=== PATIENT | female | born 1985 | race Caucasian/White ===

== ENCOUNTER 2017-02-27 18:58 | Emergency (ER) | payer OTHER, MEDICAID ==
[~2017-02-27] VITALS: Ht 172.7 cm; Wt 104.3 kg
[2017-02-27 19:20] VITALS: BP 145/99
--- NOTE | 2017-02-27 20:07 | NUR ---
PT TO OF4.
--- NOTE | 2017-02-27 20:37 | NUR ---
Patient being evaluated by physician at bedside.
[2017-02-27] MEDS ORDERED: predniSONE 20 MG TAB PO ONE (20:50)
[2017-02-27] MEDS ORDERED: ALBUTEROL 0.083% 2.5 MG/3 ML NEBU INH ONE (20:50)
[2017-02-27] MEDS ORDERED: IPRATROPIUM 0.02% 0.5 MG/2.5 ML NEBU INH ONE (20:50)
[2017-02-27 22:05] VITALS: BP 134/78
--- NOTE | 2017-02-27 22:05 | NUR ---
Patient discharged with v/s stable. Written and verbal after care instructions given and explained. Patient alert, oriented and verbalized understanding of instructions. Ambulatory with steady gait. All questions addressed prior to discharge. ID band removed. Patient advised to follow up with PMD. Rx of Phenergan DM, Albuterol inhaler, and Prednisone given. Patient educated on indication of medication including possible reaction and side effects. Opportunity to ask questions provided and answered.
== END 2017-02-27 22:05 | disposition home or self-care (01) ==
LOC: MED 18:58
DX: J20.9 Acute bronchitis, unspecified (principal)
CPT/HCPCS: 71020; 94640; 94760; 99284; J7512; J7613; J7644

== ENCOUNTER 2017-05-06 14:59 | Emergency (ER) | payer OTHER, MEDICAID ==
[~2017-05-06] VITALS: Ht 175.3 cm; Wt 104.4 kg
[2017-05-06 15:25] VITALS: BP 137/77
== END 2017-05-06 17:37 | disposition left against medical advice (07) ==
LOC: MED 14:59
DX: R42 Dizziness and giddiness (principal); Z53.21 Procedure and treatment not carried out due to patient leaving prior to being seen by health care provider
CPT/HCPCS: 81002; 81025

== ENCOUNTER 2018-07-28 10:37 | Emergency (ER) | payer BC, MEDICAID, OTHER ==
[~2018-07-28] VITALS: Ht 172.7 cm; Wt 113.4 kg
[2018-07-28 10:47] VITALS: BP 132/88
--- NOTE | 2018-07-28 10:49 | NUR ---
urine cup handed to pt for sample
--- NOTE | 2018-07-28 10:52 | NUR ---
33/F BIB SELF WITH c/o continuing pelvic pressure X 1 WEEKPT WAS treated for chlamydia pt describes same pelvic discomfort prior to treatment. denies dysuria. denies vag discharge. DENIES N/V/D; SKIN IS PINK/WARM/DRY; AAOX4 WITH EVEN AND STEADY GAIT; LUNGS CLEAR BL. PT DENIES ANY FEVER, CP, SOB, OR COUGH AT THIS TIME; PATIENT STATES PAIN OF 5/10 AT THIS TIME. PATIENT POSITIONED FOR COMFORT; HOB ELEVATED; BEDRAILS UP X2; BED DOWN. ER MD MADE AWARE OF PT STATUS.
[2018-07-28] MEDS ORDERED: IBUPROFEN 800 MG TAB PO ONE (12:10)
--- NOTE | 2018-07-28 12:19 | NUR ---
PATIENT TAKEN TO XRAY VIA WHEELCHAIR AT THIS TIME.
[2018-07-28 12:56] LABS: APPEARANCE,URINE CLEAR (CLEAR); COLOR,URINE YELLOW (YELLOW)
[2018-07-28 12:57] LABS: BILIRUBIN,URINE NEGATIVE (NEGATIVE); BLOOD, URINE NEGATIVE (NEGATIVE); LEUKOCYTE ESTERASE ,URINE NEGATIVE (NEGATIVE); NITRITE, URINE NEGATIVE (NEGATIVE); PH,URINE 7.5 (5.0-9.0); UGLUCOSE NEGATIVE (NEGATIVE)
[2018-07-28 13:08] VITALS: BP 134/83
--- NOTE | 2018-07-28 13:08 | NUR ---
Patient discharged with v/s stable. Written and verbal after care instructions given and explained. Patient alert, oriented and verbalized understanding of instructions. Ambulatory with steady gait. All questions addressed prior to discharge. ID band removed. Patient advised to follow up with PMD. Rx of LACTOLOSE, MINERAL OIL given. Patient educated on indication of medication including possible reaction and side effects. Opportunity to ask questions provided and answered.
== END 2018-07-28 13:08 | disposition home or self-care (01) ==
LOC: MED 10:37
DX: R10.9 Unspecified abdominal pain (principal)
CPT/HCPCS: 74018; 81003; 81025; 99285

== ENCOUNTER 2018-11-21 08:51 | Emergency (ER) | payer BC ==
[~2018-11-21] VITALS: Ht 175.3 cm; Wt 116.3 kg
--- NOTE | 2018-11-21 08:58 | NUR ---
PT AMBULATED TO ER BED 12
[2018-11-21 08:59] VITALS: BP 142/86
--- NOTE | 2018-11-21 09:11 | NUR ---
C/O ANTERIOR CHEST WALL PAIN UPON COUGHING, NASAL /CHEST CONGESTION 1 WK FATIGUE. DENIES N/V/D; SKIN IS PINK/WARM/DRY; PATIENT STATES PAIN OF 4/10, CHEST WALL; VSS; PATIENT POSITIONED FOR COMFORT; HOB ELEVATED; BEDRAILS UP X1; BED DOWN. ER MD MADE AWARE OF PT STATUS.
[2018-11-21 10:34] VITALS: BP 142/86
--- NOTE | 2018-11-21 10:34 | NUR ---
Patient discharged with v/s stable. Written and verbal after care instructions given and explained. Patient alert, oriented and verbalized understanding of instructions. Ambulatory with steady gait. All questions addressed prior to discharge. ID band removed. Patient advised to follow up with PMD. Rx of promethazine with codeine, tessalon perles, albuterol inhaler given. Patient educated on indication of medication including possible reaction and side effects. Opportunity to ask questions provided and answered.
== END 2018-11-21 10:34 | disposition home or self-care (01) ==
LOC: MED 08:51
DX: J06.9 Acute upper respiratory infection, unspecified (principal)
CPT/HCPCS: 71045; 81025; 99283; Q0092

== ENCOUNTER 2018-12-29 09:48 | Emergency (ER) | payer BC ==
[~2018-12-29] VITALS: Ht 172.7 cm; Wt 115.7 kg
[2018-12-29 09:54] VITALS: BP 128/66
--- NOTE | 2018-12-29 10:04 | NUR ---
BIB SON WITH C/O THROAT PAIN X 3 DAYS, -N/V/D, + COUGH, RHINORRHEA, SNEEZING, WHEEZING, PLUGGED EARS.
--- NOTE | 2018-12-29 10:32 | NUR ---
DR SMITH AT BEDSIDE.
[2018-12-29 12:10] VITALS: BP 128/66
--- NOTE | 2018-12-29 12:10 | NUR ---
Patient discharged with v/s stable. Written and verbal after care instructions given and explained. Patient alert, oriented and verbalized understanding of instructions. Ambulatory with steady gait. All questions addressed prior to discharge. ID band removed. Patient advised to follow up with PMD. Rx of CODEINE PHOSPHATE/PROMETHAZINE HYRDOCHLORIDE, and IBUPROFEN given. Patient educated on indication of medication including possible reaction and side effects. Opportunity to ask questions provided and answered.
== END 2018-12-29 12:10 | disposition home or self-care (01) ==
LOC: MED 09:48
DX: J06.9 Acute upper respiratory infection, unspecified (principal)
CPT/HCPCS: 87081; 99283

== ENCOUNTER 2019-04-17 14:34 | Emergency (ER) | payer BC ==
[~2019-04-17] VITALS: Ht 172.7 cm; Wt 118.6 kg
[2019-04-17 14:37] VITALS: BP 161/89
--- NOTE | 2019-04-17 16:48 | NUR ---
PT WAITING IN LOBBY, REPORTS PAIN AT 5/10 AND ONLY HURTS WHEN SHE GETS UP. VSS.
--- NOTE | 2019-04-17 18:01 | NUR ---
PT BIB BY FAMILY MEMBER. C/O PELVIC PAIN/PRESSURE, CURRENTLY RATED AT 4/10. CHARACTERIZES PAIN SHARP AND RADIATES TO THE BACK. PT REPORTS SHE HAS HAD 3 EPISODES OF THE PAIN IN THE PAST MONTHS THAT LAST APPROXIMATELY 1-2 HOURS. PT REPORTS SHE IS UNABLE TO PARTICIPATE IN NORMAL DAILY ACTIVITIES WHEN CRAMPS ARRIVE. PT REPORTS DIARRHEA X 2 DAYS. DENIES N/V, FEVER, VAGINAL BLEEDING, OR UTI SYMPTOMS. BEDRAILS UP X1, BED LOCKED & LOW. ERMD TO SAÚL PATIENT. Addendum: 04/17/19 at 1823 by [email or web address] PT BIB BY FAMILY MEMBER. C/O PELVIC PAIN/PRESSURE, CURRENTLY RATED AT 4/10. CHARACTERIZES PAIN SHARP AND RADIATES TO THE BACK. PT REPORTS SHE HAS HAD 3 EPISODES OF THE PAIN IN THE PAST MONTHS THAT LAST APPROXIMATELY 1-2 HOURS. PT REPORTS SHE IS UNABLE TO PARTICIPATE IN NORMAL DAILY ACTIVITIES WHEN CRAMPS ARRIVE. TENDERNESS OF SUPRAPUBIC REGION TO PALPATION. PT REPORTS DIARRHEA X 2 DAYS. DENIES N/V, FEVER, VAGINAL BLEEDING, OR UTI SYMPTOMS. DENIES CHANGES TO URINE FREQUENCY OR AMOUNT. BEDRAILS UP X1, BED LOCKED & LOW. ERMD TO MONYAL PATIENT.
[2019-04-17] MEDS ORDERED: IBUPROFEN 400 MG TAB PO ONE (19:35)
[2019-04-17 19:44] LABS: APPEARANCE,URINE CLEAR (CLEAR); BILIRUBIN,URINE NEGATIVE (NEGATIVE); COLOR,URINE YELLOW (YELLOW); LEUKOCYTE ESTERASE ,URINE NEGATIVE (NEGATIVE); NITRITE, URINE NEGATIVE (NEGATIVE); PH,URINE 5.5 (5.0-9.0); UGLUCOSE NEGATIVE (NEGATIVE)
[2019-04-17 20:01] LABS: BLOOD, URINE TRACE (NEGATIVE)
[2019-04-17 20:02] LABS: WBC,URINE 0-5 /HPF (0-5)
[2019-04-17 20:13] VITALS: BP 137/90
[2019-04-19 06:27] LABS: CHLAMYDIA TRACHOMATIS AMP DNA Negative (Negative)
== END 2019-04-17 20:13 | disposition home or self-care (01) ==
LOC: MED 14:34
DX: N94.6 Dysmenorrhea, unspecified (principal)
CPT/HCPCS: 36415; 81001; 81003; 81025; 87070; 87086; 87205; 87210; 87491; 99283

== ENCOUNTER 2019-05-14 11:33 | Emergency (ER) | payer BC ==
[~2019-05-14] VITALS: Ht 172.7 cm; Wt 117.7 kg
[2019-05-14 11:38] VITALS: BP 147/93
--- NOTE | 2019-05-14 11:50 | NUR ---
pt amb to restroom with steady gait
--- NOTE | 2019-05-14 11:54 | NUR ---
34 Y FEMALE BIB SELF C/O DIZZINESS X 3 DAYS AND PERSISENT COUGH X 1 MONTH. LUNGS CLEAR BILATERALLY. INTERMITTENT COUGH DESCRIBED DRY. DENIES PAIN, SOB, CP, OR BLURRY VISION. NEURO INTACT. EQUAL ARM AT RISK PARAPROFESSIONAL. FACIAL SYMMETRY. GCS 15. AA0X4. PUPILS CARLOS. BED IS DOWN, LOCKED, BED RAIL X 1, ERMD TO SEE PT. NO MED HX
--- NOTE | 2019-05-14 11:56 | NUR ---
DR EDOUARD AT BEDSIDE
[2019-05-14 12:22] LABS: APPEARANCE,URINE CLEAR (CLEAR); BILIRUBIN,URINE NEGATIVE (NEGATIVE); BLOOD, URINE NEGATIVE (NEGATIVE); COLOR,URINE YELLOW (YELLOW); LEUKOCYTE ESTERASE ,URINE NEGATIVE (NEGATIVE); NITRITE, URINE NEGATIVE (NEGATIVE); PH,URINE 5.5 (5.0-9.0); UGLUCOSE NEGATIVE (NEGATIVE)
[2019-05-14 12:27] LABS: BARBITURATE, URINE NEG. ng/ml (NEG <=200); BENZODIAZEPINE, URINE NEG. ng/mL (NEG <=200); CANNABINOID, URINE NEG. ng/mL (NEG <=50); COCAINE, URINE NEG. ng/mL (NEG <=300); OPIATE, URINE NEG. ng/mL (NEG <=2000); PHENCYCLIDINE SCREEN,URINE NEG. ng/mL (NEG <=25)
[2019-05-14] MEDS ORDERED: CLINDAMYCIN 150 MG CAP PO ONE (12:30)
[2019-05-14] MEDS ORDERED: MECLIZINE 25 MG TAB PO ONE (12:30)
[2019-05-14] MEDS ORDERED: FAMOTIDINE 20 MG TAB PO ONE (12:30)
[2019-05-14] MEDS ORDERED: hydrOXYzine HCL 25 MG TAB PO ONE (12:30)
--- NOTE | 2019-05-14 12:33 | NUR ---
LAB AT BEDSIDE
[2019-05-14 12:58] LABS: BASOPHILS % (AUTO) 0.3 % (0.0-2.0); EOSINOPHILS # (AUTO) 0.1 K/uL (0-0.4); EOSINOPHILS % (AUTO) 1.1 % (0.0-4.0); HEMATOCRIT 36.7 % (36-48); HEMOGLOBIN 12.2 g/dL (12.0-16.0); LYMPHOCYTES # (AUTO) 1.8 K/uL (2.5-16.5); LYMPHOCYTES % (AUTO) 23.4 % (20.5-51.1); MEAN CORPUSCULAR HEMOGLOBIN 29 pg (27-31); MEAN CORPUSCULAR HGB CONC 33 g/dL (33-37); MEAN CORPUSCULAR VOLUME 87.6 fL (80-94); MONOCYTES # (AUTO) 0.5 K/uL (0.8-1.0); NEUTROPHILS # (AUTO) 5.3 K/uL (1.8-7.7); NEUTROPHILS % (AUTO) 69.2 % (42.2-75.2); PLATELET COUNT (AUTO) 205 K/uL (140-450); RED BLOOD CELL COUNT(AUTO) 4.19 MIL/uL (4.20-5.40); RED CELL DISTRIBUTION WIDTH 13.7 % (11.6-13.7); WHITE BLOOD COUNT (AUTO) 7.6 K/uL (4.8-10.8)
[2019-05-14 14:28] VITALS: BP 142/87
--- NOTE | 2019-05-14 14:28 | NUR ---
Patient discharged with v/s stable. Written and verbal after care instructions given and explained. Patient alert, oriented and verbalized understanding of instructions. Ambulatory with steady gait. All questions addressed prior to discharge. ID band removed. Patient advised to follow up with PMD. Rx of ANTIVERT given. Patient educated on indication of medication including possible reaction and side effects. Opportunity to ask questions provided and answered. PT INSTRUCTED TO FOLLOW UP WITH DR HOWE FOR [employer] SINCE PT IS ATTEMPTING TO GET PREGNENT AT THIS TIME.
== END 2019-05-14 14:28 | disposition home or self-care (01) ==
LOC: MED 11:33
DX: R42 Dizziness and giddiness (principal); R09.82 Postnasal drip; F41.9 Anxiety disorder, unspecified
CPT/HCPCS: 36415; 80305; 81003; 81025; 84703; 85025; 99283; J8597; 99284

== ENCOUNTER 2019-11-23 08:32 | Emergency (ER) | payer BC ==
[~2019-11-23] VITALS: Ht 172.7 cm; Wt 115.3 kg
[2019-11-23 08:38] VITALS: BP 152/85
--- NOTE | 2019-11-23 08:43 | NUR ---
Patient ambulated to bed 5. RN evaluating patient at bedside.
--- NOTE | 2019-11-23 08:48 | NUR ---
Dr. Garcia is evaluating the patient at bedside.
--- NOTE | 2019-11-23 09:01 | NUR ---
Ultrasound at bedside.
--- NOTE | 2019-11-23 09:04 | NUR ---
PT C/O DARK RED VAGINAL BLEEDING SINCE THIS MORNING. PT IS 11 WEEKS . DENIES ABDOMINAL CRAMPS, URGENCY/FREQUENCY/BURNING SENSATION OF URINATION. PT STATES HAVING YEAST INFECTION WITH VAGINAL ITCHY AND DISCHARGE W/O PHARMOLOGICAL TREATMENT. . PATIENT STATES PAIN OF 0/10 AT THIS TIME; VSS; PATIENT POSITIONED FOR COMFORT; HOB ELEVATED; BEDRAILS UP X1; BED DOWN. ER MD MADE AWARE OF PT STATUS.
[2019-11-23 09:50] LABS: BASOPHILS % (AUTO) 0.2 % (0.0-2.0); EOSINOPHILS % (AUTO) 0.6 % (0.0-4.0); HEMATOCRIT 36.9 % (36-48); HEMOGLOBIN 12.2 g/dL (12.0-16.0); LYMPHOCYTES # (AUTO) 1.2 K/uL (2.5-16.5); LYMPHOCYTES % (AUTO) 16.6 % (20.5-51.1); MEAN CORPUSCULAR HEMOGLOBIN 30 pg (27-31); MEAN CORPUSCULAR HGB CONC 33 g/dL (33-37); MEAN CORPUSCULAR VOLUME 90.2 fL (80-94); MONOCYTES # (AUTO) 0.4 K/uL (0.8-1.0); MONOCYTES % (AUTO) 5.4 % (1.7-9.3); NEUTROPHILS # (AUTO) 5.7 K/uL (1.8-7.7); NEUTROPHILS % (AUTO) 77.2 % (42.2-75.2); PLATELET COUNT (AUTO) 196 K/uL (140-450); RED BLOOD CELL COUNT(AUTO) 4.09 MIL/uL (4.20-5.40); RED CELL DISTRIBUTION WIDTH 13.7 % (11.6-13.7); WHITE BLOOD COUNT (AUTO) 7.4 K/uL (4.8-10.8)
[2019-11-23 10:12] LABS: ALBUMIN 3.2 g/dL (3.4-5.0); CREATININE 0.6 mg/dL (0.6-1.3); POTASSIUM 3.8 mmol/L (3.5-5.1); TOTAL BILIRUBIN 0.3 mg/dL (0.0-1.0)
[2019-11-23 10:28] LABS: ANION GAP 14.2 (8-16); CARBON DIOXIDE 23.6 mmol/L (21-32)
--- NOTE | 2019-11-23 10:30 | NUR ---
pt is resting in bed with eyes opened.
[2019-11-23 11:54] VITALS: BP 128/75
--- NOTE | 2019-11-23 11:54 | NUR ---
Patient discharged with v/s stable by Dr. Garcia. Written and verbal after care instructions given and explained. All questions addressed prior to discharge. Advised to follow up with PMD.
== END 2019-11-23 11:54 | disposition home or self-care (01) ==
LOC: MED 08:32
DX: O46.91 Antepartum hemorrhage, unspecified, first trimester (principal); N98.9 Complication associated with artificial fertilization, unspecified; Z3A.10 10 weeks gestation of pregnancy
CPT/HCPCS: 36415; 76801; 80053; 81025; 84702; 85025; 86900; 86901; 99284; Q0092

== ENCOUNTER 2019-12-07 21:38 | Emergency (ER) | payer BC ==
[~2019-12-07] VITALS: Ht 172.7 cm; Wt 113.4 kg
[2019-12-07 22:25] VITALS: BP 162/99
[2019-12-07 23:23] LABS: BASOPHILS % (AUTO) 0.2 % (0.0-2.0); EOSINOPHILS # (AUTO) 0.1 K/uL (0-0.4); EOSINOPHILS % (AUTO) 0.5 % (0.0-4.0); HEMATOCRIT 37.1 % (36-48); HEMOGLOBIN 12.4 g/dL (12.0-16.0); LYMPHOCYTES # (AUTO) 1.9 K/uL (2.5-16.5); LYMPHOCYTES % (AUTO) 18.3 % (20.5-51.1); MEAN CORPUSCULAR HEMOGLOBIN 30 pg (27-31); MEAN CORPUSCULAR HGB CONC 33 g/dL (33-37); MEAN CORPUSCULAR VOLUME 89.2 fL (80-94); MONOCYTES # (AUTO) 0.7 K/uL (0.8-1.0); MONOCYTES % (AUTO) 6.5 % (1.7-9.3); NEUTROPHILS # (AUTO) 7.8 K/uL (1.8-7.7); NEUTROPHILS % (AUTO) 74.5 % (42.2-75.2); PLATELET COUNT (AUTO) 207 K/uL (140-450); RED BLOOD CELL COUNT(AUTO) 4.15 MIL/uL (4.20-5.40); RED CELL DISTRIBUTION WIDTH 13.4 % (11.6-13.7); WHITE BLOOD COUNT (AUTO) 10.4 K/uL (4.8-10.8)
[2019-12-07 23:27] LABS: APPEARANCE,URINE SL CLOUDY (CLEAR); BILIRUBIN,URINE NEGATIVE (NEGATIVE); BLOOD, URINE 3+ (NEGATIVE); COLOR,URINE YELLOW (YELLOW); LEUKOCYTE ESTERASE ,URINE 2+ (NEGATIVE); NITRITE, URINE NEGATIVE (NEGATIVE); UGLUCOSE NEGATIVE (NEGATIVE)
--- NOTE | 2019-12-08 00:26 | NUR ---
TO ER BED 9
[2019-12-08 00:42] LABS: RBC,URINE TOO NUMEROUS TO COUN /HPF (0-5); WBC,URINE 16-25 (MOD) /HPF (0-5)
--- NOTE | 2019-12-08 00:47 | NUR ---
BIB SELF C/O VAGINAL BLEEDING BEGINNING AT 1999, WITH A GUSH OF BLOOD AND CONTINUOUS BLEEDING. SOAKED 2 PERIDPADS. DENIES ANY SOD/CP/DIZZINESS. PT REPORTS LIGHT CRAMPING IN PELVIC AREA. RESPIRATIONS EVEN AND UNLABORED. AAOX4. SKIN IN TACT, DRY, COOL. MED HX: OVARY CYST NKA
[2019-12-08 01:09] LABS: BARBITURATE, URINE NEG. ng/ml (NEG <=200); BENZODIAZEPINE, URINE NEG. ng/mL (NEG <=200); CANNABINOID, URINE NEG. ng/mL (NEG <=50); COCAINE, URINE NEG. ng/mL (NEG <=300); OPIATE, URINE NEG. ng/mL (NEG <=2000); PHENCYCLIDINE SCREEN,URINE NEG. ng/mL (NEG <=25)
--- NOTE | 2019-12-08 01:45 | NUR ---
PATIENT SITTING UP IN BED, NO COMPLAINTS AT THIS TIME.
[2019-12-08] MEDS ORDERED: cefTRIAXone 1,000 MG in LIDOCAINE MPF 1% 2.1 ML IM ONE (03:10)
[2019-12-08] MEDS ORDERED: cefTRIAXone 1,000 MG VIAL ONE (03:15)
[2019-12-08] MEDS ORDERED: LIDOCAINE MPF 1% 5 ML ONE (03:15)
[2019-12-08 03:25] VITALS: BP 142/92
== END 2019-12-08 03:25 | disposition home or self-care (01) ==
LOC: MED 21:38
DX: O46.91 Antepartum hemorrhage, unspecified, first trimester (principal); O23.41 Unspecified infection of urinary tract in pregnancy, first trimester
CPT/HCPCS: 36415; 76801; 80305; 81001; 81025; 84702; 85025; 86900; 86901; 87086; 96372; 99284; J0696; J2001; Q0092

== ENCOUNTER 2023-01-26 08:12 | Emergency (ER) | payer BC, MEDICAID ==
[~2023-01-26] VITALS: Ht 171.4 cm; Wt 118.2 kg
[2023-01-26 08:13] VITALS: BP 150/90
--- NOTE | 2023-01-26 08:20 | NUR ---
PT AMB TO BED 4.
--- NOTE | 2023-01-26 08:41 | NUR ---
Patient being evaluated by Dr. Muñoz at bedside.
[2023-01-26] MEDS ORDERED: LIDOCAINE 1% 500 MG/ 50 ML VIAL INJ ONE (08:50)
[2023-01-26] MEDS ORDERED: LIDOCAINE MPF 1% 5 ML ONE (09:31)
--- NOTE | 2023-01-26 10:06 | NUR ---
Patient discharged with v/s stable. Written and verbal after care instructions given and explained. Patient verbalized understanding. Ambulatory with steady gait. All questions addressed prior to discharge. Advised to follow up with PMD.
== END 2023-01-26 10:06 | disposition home or self-care (01) ==
LOC: MED 08:12
DX: M54.6 Pain in thoracic spine (principal); R00.2 Palpitations; F41.9 Anxiety disorder, unspecified; Z79.899 Other long term (current) drug therapy
CPT/HCPCS: 20552; 99284; J2001